=== PATIENT | male | born 2005 ===

== ENCOUNTER 2025-09-26 17:43 | Emergency (ER) | payer SELFPAY ==
[2025-09-26 18:42] LABS: APPEARANCE,URINE CLEAR (CLEAR); GLUCOSE,URINE NEGATIVE (NEGATIVE); OCCULT BLOOD,URINE NEGATIVE (NEGATIVE)
[2025-09-26] MEDS: cefTRIAXone 500 MG, Lidocaine 1% 1 ML IM ONE (18:42)
[2025-09-26 18:55] LABS: SQUAMOUS EPITHELIAL CELLS,UR FEW /HPF (NOT SEEN)
== END 2025-09-26 19:00 | disposition home or self-care (01) ==
LOC: DL.ED 17:43
DX: Z20.2 Contact with and (suspected) exposure to infections with a predominantly sexual mode of transmission (principal); Z11.3 Encounter for screening for infections with a predominantly sexual mode of transmission; F17.200 Nicotine dependence, unspecified, uncomplicated
CPT/HCPCS: 81001; 87491; 87563; 87591; 96372; 99283; A9270-GY; J0696; J2003